=== PATIENT | male | born 1955 | race Caucasian/White ===

== ENCOUNTER 2019-11-21 11:28 | Inpatient (IN) ==
[2019-11-21] MEDS ORDERED: SODIUM CHLORIDE 0.9% 1,000 ML IV STA ×2 (12:12→12:59)
[2019-11-21] MEDS ORDERED: ONDANSETRON 4 MG/2 ML VIAL IV STA (12:12)
[2019-11-21 12:38] LABS: Basophils % 0.4 % (0.0-0.8); Eosinophils % 0.1 % (0.00-10.9); Hematocrit 50.5 VOL% (42.0-52.0); Hemoglobin 17.1 GM/DL (14.0-18.0); Immature Granulocytes % 0.7 %; Immature Granulocytes Absolute 0.05 #; Lymphocytes # 0.9 10*3/uL (1.4-4.0); Lymphocytes % 11.4 % (21.2-54.2); Mean Corpuscular HGB Conc 33.9 GM/DL (32-36); Mean Corpuscular Volume 93.7 FL (87-102); Mean Platelet Volume 10.4 FL (9.6-12.0); Monocytes % 4.2 % (1.7-12.7); Neutrophils % 83.2 % (38.7-73.9); Platelet Count 201 T/CUMM (130-400); Red Blood Count 5.39 MC/CUMM (3.8-5.5); Red Cell Distribution Width 12.1 % (9.3-17.3); White Blood Count 7.6 T/CUMM (4-12)
[2019-11-21 12:47] LABS: Apearance,Urine CLEAR (Clear); Bilirubin,Urine Negative (Negative); Blood, Urine Negative (Negative); Glucose,Urine (UA) >=500 mg/dL (Negative); Hyaline Casts,Urine 7 /LPF (0-3); Ketones,Urine 80 mg/dL (Negative); Mucus,Urine Occasional /LPF (Occasional); Nitrite,Urine Negative (Negative); Protein,Urine Negative; Urine Color Yellow (Yellow); Urine Specific Gravity 1.027 (1.001-1.035); Urine Urobilinogen < 2.0 EU/DL (0.2-1.0)
[2019-11-21 13:08] LABS: Alanine Aminotransferase 37 U/L (16-61); Albumin 4.3 G/DL (3.4-5.0); Alkaline Phosphatase 130 U/L (45-117); Amylase 38 U/L (25-115); Aspartate Amino Transferase 18 U/L (0-37); Blood Urea Nitrogen 32 MG/DL (7-18); Calcium 9.3 MG/DL (8.5-10.1); Estimated Glom Filtration Rate 50 ML/MIN; Osmolality,Calculated 305.7 MOS/KG (273-304); Total Protein 7.8 G/DL (6.4-8.3)
[2019-11-21] MEDS ORDERED: PIPERACILLIN/TAZOBACTAM 3,375 MG in SODIUM CHLORIDE 0.9% 100 ML IV STA (13:08)
[2019-11-21 13:12] LABS: Glucose 534 MG/DL (74-106)
[2019-11-21] MEDS ORDERED: INSULIN REGULAR 100 UNIT/ML IV STA ×2 (13:21→14:48)
[2019-11-21 13:30] LABS: ABG Base Excess -10.5 MMOL/L (-2.5-2.5); ABG HCO3 16.3 MMOL/L (20-26); ABG Oxygen Saturation 95.8 % (95-100); ABG PCO2 31.3 MM HG (35-48); ABG PH 7.291 (7.35-7.45); ABG PO2 87.5 MM HG (80-95); Allen Test Positive; Pt O2 Delivery Device Room Air
[2019-11-21] MEDS ORDERED: SODIUM PHOSPHATE IV PRN (15:30)
[2019-11-21] MEDS ORDERED: SODIUM BICARB INJ 100 MEQ in STERILE WATER INJ 400 ML IV PRN (15:30)
[2019-11-21] MEDS ORDERED: SODIUM CHLORIDE 0.9% IV PRN (15:30)
[2019-11-21] MEDS ORDERED: MAGNESIUM SULF RIDER 4 GM in PREMIX 1 EACH IV PRN (15:30)
[2019-11-21] MEDS ORDERED: DEXTROSE 10% 250 ML BAG IV PRN ×2 (15:30)
[2019-11-21] MEDS ORDERED: MAGNESIUM SULF RIDER 2 GM in PREMIX 1 EACH IV PRN (15:30)
[2019-11-21] MEDS: SODIUM CHLORIDE 0.9% 1,000 ML IV SCH ×2 (17:54→19:24)
[2019-11-21] MEDS ORDERED: INSULIN REGULAR DRIP 100 ML IV SCH (18:00)
[2019-11-21] MEDS ORDERED: INFLUENZA VIRUS VACCINE 0.5 ML SYRINGE IM ONE (18:14)
[2019-11-21 18:47] LABS: Calcium 8.3 MG/DL (8.5-10.1); Osmolality,Calculated 303.8 MOS/KG (273-304)
[2019-11-21 20:11] LABS: Osmolality,Calculated 307.3 MOS/KG (273-304)
[2019-11-21] MEDS ORDERED: SODIUM CHLORIDE 0.9% 1,000 ML IV SCH (20:30)
[2019-11-21] MEDS: DEXTROSE 5% NACL 0.45% 1,000 ML IV SCH (22:11)
[2019-11-21 23:50] LABS: Calcium 7.7 MG/DL (8.5-10.1); Osmolality,Calculated 304.1 MOS/KG (273-304)
[2019-11-22] MEDS: POTASSIUM CHLORIDE RIDER 10 MEQ in PREMIX 1 EACH IV PRN ×2 (00:54→01:57)
[2019-11-22 04:02] LABS: Basophils % 0.5 % (0.0-0.8); Eosinophils # 0.1 10*3/uL (0.0-0.87); Eosinophils % 1.7 % (0.00-10.9); Hematocrit 35.1 VOL% (42.0-52.0); Hemoglobin 11.8 GM/DL (14.0-18.0); Immature Granulocytes % 0.5 %; Immature Granulocytes Absolute 0.03 #; Lymphocytes # 1.6 10*3/uL (1.4-4.0); Lymphocytes % 26.9 % (21.2-54.2); Mean Corpuscular HGB Conc 33.6 GM/DL (32-36); Mean Corpuscular Volume 94.4 FL (87-102); Mean Platelet Volume 9.9 FL (9.6-12.0); Neutrophils % 62.4 % (38.7-73.9); Platelet Count 126 T/CUMM (130-400); Red Blood Count 3.72 MC/CUMM (3.8-5.5); Red Cell Distribution Width 12.1 % (9.3-17.3)
[2019-11-22 04:23] LABS: Calcium 7.5 MG/DL (8.5-10.1); Osmolality,Calculated 298.4 MOS/KG (273-304)
[2019-11-22] MEDS: DEXT 5% NACL 0.45% KCL 20 MEQ 20 MEQ/1,000 ML BAG IV SCH ×2 (04:49→09:00)
[2019-11-22] MEDS: DEXTROSE 5% NACL 0.45% 1,000 ML IV SCH (04:52)
[2019-11-22 08:17] LABS: Calcium 7.7 MG/DL (8.5-10.1); Osmolality,Calculated 290.7 MOS/KG (273-304)
[2019-11-22] MEDS: ENOXAPARIN 40 MG/0.4 ML SYRINGE SUBCUT SCH (08:20)
[2019-11-22] MEDS: SODIUM CHLORIDE 0.45% 1,000 ML IV SCH ×3 (08:31→20:53)
[2019-11-22] MEDS ORDERED: INSULIN NPH 100 UNIT/ML SUBCUT SCH (10:30)
[2019-11-22] MEDS ORDERED: GLUCAGON 1 MG VIAL IM PRN (12:04)
[2019-11-22] MEDS ORDERED: DEXTROSE 10% 25 GM/250 ML BAG IV PRN (12:04)
[2019-11-22] MEDS: INSULIN NPH 100 UNIT/ML SUBCUT SCH (17:45)
[2019-11-23] MEDS: SODIUM CHLORIDE 0.45% 1,000 ML IV SCH (04:55)
[2019-11-23 05:54] LABS: Basophils % 0.5 % (0.0-0.8); Eosinophils # 0.1 10*3/uL (0.0-0.87); Eosinophils % 1.6 % (0.00-10.9); Hematocrit 36.1 VOL% (42.0-52.0); Hemoglobin 12.1 GM/DL (14.0-18.0); Immature Granulocytes % 0.3 %; Immature Granulocytes Absolute 0.01 #; Lymphocytes # 1.4 10*3/uL (1.4-4.0); Lymphocytes % 36.9 % (21.2-54.2); Mean Corpuscular HGB Conc 33.5 GM/DL (32-36); Mean Corpuscular Volume 94.3 FL (87-102); Mean Platelet Volume 10.5 FL (9.6-12.0); Monocytes % 7.6 % (1.7-12.7); Neutrophils % 53.1 % (38.7-73.9); Platelet Count 100 T/CUMM (130-400); Red Blood Count 3.83 MC/CUMM (3.8-5.5); Red Cell Distribution Width 11.9 % (9.3-17.3); White Blood Count 3.8 T/CUMM (4-12)
[2019-11-23] MEDS ORDERED: MULTIVITAMIN (CENTRUM) TABLET PO SCH (09:00)
[2019-11-23] MEDS: INSULIN NPH 100 UNIT/ML SUBCUT SCH (09:07)
[2019-11-23] MEDS: ENOXAPARIN 40 MG/0.4 ML SYRINGE SUBCUT SCH (09:08)
[2019-11-23 12:12] VITALS: BP 140/83
[2019-11-24 16:27] LABS: Ehrlichia Chaffeensis (HME)IgG <1:64 titer (<1:64)
== END 2019-11-23 13:14 | disposition home or self-care (01) | DRG 638 ==
LOC: EDBD → EDUNIT# → N.ED 11:28 → N.EDINP 14:30 → N.ICU 17:26 → N.2E 11-22 12:18
PROVIDERS: ADMIT Internal Medicine; ATTEND Internal Medicine